=== PATIENT | female | born 1975 | race Two or more races ===

== ENCOUNTER 2021-07-02 08:59 | Outpatient (CLI) | payer OTHER ==
[~2021-07-02 08:59] MED LIST: DRAMAMINE LESS25 MG PO; PEPCID20 MG PO
== END 2021-07-02 09:01 | disposition home or self-care (01) ==
LOC: SONOGRAMA 08:59
DX: D25.2 Subserosal leiomyoma of uterus (principal); N84.0 Polyp of corpus uteri; E06.5 Other chronic thyroiditis

== ENCOUNTER 2021-11-02 08:44 | Day surgery (SDC) | payer OTHER ==
[~2021-11-02] VITALS: Ht 162.6 cm; Wt 70.3 kg
[2021-11-02] MEDS ORDERED: IBU600 MG PO (13:45)
== END 2021-11-02 20:50 | disposition home or self-care (01) ==
LOC: CIR.AMB 08:44
PROVIDERS: ATTEND Obstetrics & Gynecology Gynecology
DX: N84.0 Polyp of corpus uteri (principal); Z20.822 Contact with and (suspected) exposure to COVID-19

== ENCOUNTER 2022-06-10 08:40 | Inpatient (IN) | payer OTHER ==
[~2022-06-10] VITALS: Ht 162.6 cm; Wt 68.0 kg
[~2022-06-10 08:40] MED LIST changes: +IBU600 MG PO
[2022-06-13] MEDS ORDERED: HYOSCYAMINE0.125 M1 SL (09:53)
[2022-06-13] MEDS ORDERED: PERCOCET 5-3251 EACH PO (09:53)
[2022-06-13] MEDS ORDERED: INTESTINEX680 M1 PO (09:53)
== END 2022-06-13 11:23 | disposition home or self-care (01) | DRG 331 ==
LOC: CIR.AMB 08:40 → O/R 16:20 → SURH 16:20 → CIR.AMB 23:45 → SURH 06-12 10:29
PROVIDERS: Obstetrics & Gynecology Gynecologic Oncology; ADMIT Surgery; ATTEND Surgery
PROC: 0DBW4ZZ Excision of Peritoneum, Percutaneous Endoscopic Approach (ICD-10-PCS; 2022-06-10)
PROC: 0UDB8ZZ Extraction of Endometrium, Via Natural or Artificial Opening Endoscopic (ICD-10-PCS; 2022-06-10)
PROC: 0UPD8HZ Removal of Contraceptive Device from Uterus and Cervix, Via Natural or Artificial Opening Endoscopic (ICD-10-PCS; 2022-06-10)
PROC: 0DTF4ZZ Resection of Right Large Intestine, Percutaneous Endoscopic Approach (ICD-10-PCS; principal; 2022-06-10 23:45)
PROC: 07BB4ZZ Excision of Mesenteric Lymphatic, Percutaneous Endoscopic Approach (ICD-10-PCS; 2022-06-10 23:45)
DX: C18.2 Malignant neoplasm of ascending colon (principal); Z30.432 Encounter for removal of intrauterine contraceptive device; Z20.822 Contact with and (suspected) exposure to COVID-19

== ENCOUNTER 2024-03-19 07:24 | Day surgery (SDC) | payer OTHER ==
[2024-03-12 13:56] VITALS: BP 119/75
[~2024-03-19] VITALS: Ht 162.6 cm; Wt 68.0 kg
[~2024-03-19 07:24] MED LIST changes: +HYOSCYAMINE0.125 M1 SL; +INTESTINEX680 M1 PO; +PERCOCET 5-3251 EACH PO
[2024-03-19] MEDS ORDERED: POVIDONE-IODINE 118 ML BOTT TOP ONE (10:19)
[2024-03-19] MEDS ORDERED: IBU600 MG PO (10:55)
== END 2024-03-19 17:15 | disposition home or self-care (01) ==
LOC: CIR.AMB 07:24
PROVIDERS: ATTEND Obstetrics & Gynecology Gynecology
DX: N84.0 Polyp of corpus uteri (principal); D25.0 Submucous leiomyoma of uterus